=== PATIENT | female | born 1950 | race Hispanic/Latino ===

== ENCOUNTER 2018-10-02 06:00 | Day surgery (SDC) | payer MEDICARE, OTHER ==
--- NOTE | 2018-10-02 07:36 | Anesthesia Consultation ---
Anesthesia Consult and Med Hx Date of service: 10/02/18 - Airway Anesthetic Teeth Evaluation: Good ROM Head & Neck: Adequate Mental/Hyoid Distance: Adequate Mallampati Class: Class II Intubation Access Assessment: Probably Good - Pulmonary Exam CTA: Yes - Cardiac Exam Cardiac Exam: RRR - Pre-Operative Health Status ASA Pre-Surgery Classification: ASA3 Proposed Anesthetic Plan: MAC - Pulmonary Hx Smoking: Yes COPD: Yes Hx Sleep Apnea: Yes (cpap) - Cardiovascular System Hx Hypertension: Yes - Gastrointestinal Hx Gastroesophageal Reflux Disease: Yes (rare and food related, presently asymptomatic) - Endocrine Hx Non-Insulin Dependent Diabetes: Yes - Other Systems Hx Obesity: Yes
--- NOTE | 2018-10-02 07:37 | Anesthesia Day of Surgery ---
Anesthesia Day of Surgery - Day of Surgery Patient Examined: Yes Patient H&P Reviewed: Yes Patient is NPO: Yes
[2018-10-02] MEDS ORDERED: NACL 0.9% 1000 ML 1,000 ML IV SCH (08:00)
[2018-10-02] MEDS ORDERED: WATER FOR IRRIG STERILE IR ONE (08:38)
--- NOTE | 2018-10-02 08:53 | Short Stay Summary ---
Short Stay Documentation - Allergies and Medications Current Medications: Allergies latex Allergy (Mild, Verified 10/01/18 12:59) Unknown Home Medications Medication Instructions Recorded Confirmed Last Taken Type Anoro Ellipta 62.5-25 Mcg INH 2 puff INHALATION DAILY 10/01/18 10/02/18 04/07/18 History Cinnamon 1,000 mg PO BID 10/01/18 10/02/18 09/30/18 12:00 History DULoxetine 1 tab PO DAILY 10/01/18 10/02/18 10/01/18 09:00 History Fenofibrate 160 mg PO DAILY 10/01/18 10/02/18 09/30/18 21:00 History Glipizide 10 mg PO DAILY 10/01/18 10/02/18 09/29/18 09:00 History Iron 150 mg PO DAILY 10/01/18 10/02/18 09/30/18 History Lisinopril 1 tab PO DAILY 10/01/18 10/02/18 10/01/18 09:00 History Vitamin B-12 1 tab PO DAILY 10/01/18 10/02/18 09/30/18 09:00 History Vitamin D3 1 tab PO DAILY 10/01/18 10/02/18 09/30/18 09:00 History metFORMIN 500 mg PO BID 10/01/18 10/02/18 10/01/18 17:00 History traMADol 50 mg PO DAILY 10/01/18 10/02/18 09/30/18 09:00 History Active Medications Sodium Chloride (Nacl 0.9% 1000 Ml) 1,000 mls @ 50 mls/hr IV DIRECT SALMA - Brief post op/procedure progress note Date of procedure: 10/02/18 Pre-op diagnosis: Colon cancer screening Post-op diagnosis: same (Colonoscopy aborted due to very por prep) Procedure: Colonoscopy attempted but aborted Anesthesia: MAC Findings: as above Surgeon: DYAN KNOX Estimated blood loss: none Pathology: none Condition: stable - Disposition Condition at discharge: Stable Disposition: DC-01 TO HOME OR SELFCARE Short Stay Discharge Plan Activity: no restrictions Diet: regular, low salt Follow up with: BEATRIZ LIN MD [Primary Care Provider] - 7 Days
[2018-10-02 09:39] VITALS: BP 134/53
--- NOTE | 2018-10-02 09:46 | Post Anesthesia Evaluation ---
- Post Anesthesia Evaluation Patient Participated: Yes Airway Patent: Yes Stable Respiratory Function: Yes Nausea/Vomiting: No Temp > 96.8F: Yes Pain Manageable: Yes Adequeate Hydration: Yes Anesthesia Complications: No Block Receding Appropriately: Not Applicable Patient on Ventilator: No
[2018-10-02] MEDS ORDERED: DIPRIVAN 10 MG/ML IV ONE (13:37)
== END 2018-10-02 06:01 | disposition home or self-care (01) ==
LOC: GIO 06:00
PROVIDERS: ATTEND Internal Medicine Gastroenterology
DX: Z12.11 Encounter for screening for malignant neoplasm of colon (principal); K64.0 First degree hemorrhoids; E78.00 Pure hypercholesterolemia, unspecified; I10 Essential (primary) hypertension; J43.9 Emphysema, unspecified; F32.9 Major depressive disorder, single episode, unspecified; E11.9 Type 2 diabetes mellitus without complications; E66.9 Obesity, unspecified; Z68.42 Body mass index [BMI] 45.0-49.9, adult; Z79.899 Other long term (current) drug therapy; Z90.49 Acquired absence of other specified parts of digestive tract; Z98.890 Other specified postprocedural states; Z90.710 Acquired absence of both cervix and uterus; Z79.84 Long term (current) use of oral hypoglycemic drugs; Z91.040 Latex allergy status; Z87.891 Personal history of nicotine dependence
CPT/HCPCS: 82962; G0121; J2704; J7030